=== PATIENT | male | born 1955 | race Caucasian/White ===

== ENCOUNTER 2023-11-12 17:27 | Emergency (ER) | payer MEDICARE, SELFPAY ==
[2023-11-12 17:28] VITALS: BP 157/90; PULSE 84; RESP 17; TEMP 36.4; O2SAT 96; BMI 26.0
--- NOTE | 2023-11-12 18:02 | EX.ED.DYSGE1 ---
HPI History of Present Illness Chief Complaint: Anxiety Informant: patient Onset/Context/Timing Onset: Weeks (2) Context: Gradual Onset Timing: Continuous Quality: Anxiety Location: Generalized Worsened by: Stress Relieved by: Taking his mind off of his situation Narrative Narrative: Patient presents with increasing anxiety that has been getting worse over the past 2 weeks. Patient states it is gradually getting worse. Patient states that he has been under a lot of stress with work. Patient also states that his brother recently and the was today. Patient states this made his anxiety worse. Patient states that if he tries to take his mind off of things his anxiety does get somewhat better. Patient denies any suicidal homicidal ideations. Patient states he has been on antianxiety medicines in the past but has not used them in the past couple years. [facility] Medical History High blood pressure High cholesterol Anxiety Home Medications ?Medication ?Instructions ?Recorded ?Last Taken ?Type hydroxyzine pamoate 25 mg capsule 50 mg (2 x 25 mg) PO TID PRN PRN 11/12/23 Unknown Rx Anxiety #30 CAPSULES Allergy/AdvReac Type Severity Reaction Status Date / Time bee venom protein (honey bee) Allergy Severe Anaphylaxis Verified 11/12/23 17:28 Surgical History no surgical history no surgical history Social History Smoking Status: Never smoker ROS ROS ED Constitutional Constitutional ED: Denies chills or fever(s) Eyes Eyes: Denies blurry vision or change in vision ENT ENT ED: Denies rhinorrhea or sore throat Cardiovascular Cardiovascular: Denies chest pain or palpitations Respiratory/Chest Respiratory/Chest: Denies cough or dyspnea Gastrointestinal Gastrointestinal: Denies nausea or vomiting Genitourinary Genitourinary ED: Denies dysuria or hematuria Musculoskeletal Musculoskeletal: Denies back pain or neck pain Integumentary Denies abscess or rash Neurologic Neurologic: Denies headache(s) or weakness Psychiatric Psychiatric: Reports anxiety; Denies suicidal ideation or suicidal thoughts Allergic/Immunologic Allergic/Immunologic ED: Denies mouth swelling or urticaria EXAM Physical Exam Const Vital Signs: 11/12/23 17:28 Temperature 97.6 F L Temperature Source Temporal Pulse Rate 84 Respiratory Rate 17 Blood Pressure 157/90 H Blood Pressure Mean 112 Pulse Ox 96 Oxygen Delivery Method Room Air Positive well nourished and well developed General Appearance ED: well developed and NAD HEENT Reports moist mucous membranes Neck supple and no JVD Resp normal respiratory effort and clear to auscultation bilaterally Cardio regular rate and regular rhythm GI non-tender and non-distended Palpation: soft Extremity normal to inspection General Extremety ED: Negative for edema or tenderness General Extremity: Negative for edema Neuro oriented x3, CN's II-XII intact bilaterally and no sensory deficits noted Sensorium / Orientation: alert Motor Exam: strength 5/5 throughout Psych Mood & Affect: anxious MDM MDM MDM Narrative Medical decision making narrative: Patient was given a dose of Vistaril here. Patient was given a prescription for Vistaril. Patient was instructed to follow-up with his primary care physician in 5 to 7 days for further evaluation. Patient and family understood and were agreeable with the plan. All questions were answered. Discharge Plan Triage Chief Complaint: Anxiety ED Provider: Xavier Real Dx/Rx/DC Orders Clinical Impression: Anxiety, Hypercholesterolemia, Elevated blood pressure reading Instructions: ED Anxiety Reaction Prescriptions: New hydroxyzine pamoate 25 mg capsule 50 mg PO TID PRN PRN (Reason: Anxiety) Qty: 30 0RF Rx Instructions: Take 1 to 2 tablets every 8 hours as needed for anxiety Primary Care Provider: Kelechi Tompkins Referrals: Kelechi Tompkins MD [Primary Care Provider] - 5-7 Days Print Language: Yoruba Disposition Disposition: Home, Self Care
[2023-11-12] MEDS: hydrOXYzine PAM 25 MG Capsule PO (18:12)
--- NOTE | 2023-11-12 18:35 | CM.ED ---
Social Work Date of referral: 11/12/23 Reason for referral: Anxiety Referred by: Social Work identification vault worker met briefly with patient and patient's son Martir prior to patient being discharged. Patient consented to social work visit and also consented to Martir being in the room during the visit. Patient stated he's struggled with anxiety for over 20 year and used to be medicated for it and saw a psychiatrist 2 or 3 times. Patient unable to recall the name of the psychiatrist. Patient stated he's been experiencing recent increased stressors with work and his partners selling the business and now, patient's youngest brother recently and the was today. Patient reported he used to struggle with panic attacks and used to think he was having a heart attack and was going to . Patient reported that being in the crowd today at the triggered flashbacks to when patient used to have panic attacks years ago and increased his anxiety and fear that he's going to start having them again. Patient reported that today is the first real day that he cried over his brother's and thinks that his grief was just delayed. Patient talked about various relaxation strategies he utilizes to help calm and relax himself which involved focusing/being aware of his body and what's happening to his body. Patient reported that has helped. Patient also reported he tries to find something to focus his attention on to take his mind off of something that's causing him high levels of stress. vault worker provided emotional support and reassurance and reviewed stages of grief as well as dialectical behavior therapy techniques such as Mindfulness and the Self-Soothing Skill which protective services social worker trained patient on. Patient declined counseling resources or resources for grief. Patient reported he has a strong family support system and is going to talk to his doctor about getting put back on medication. No other concerns identified and no other assistance requested. Rocio Fisher, MEDICAL PHYSICS RESEARCHER, FITTER'S ASSISTANT
[2023-11-12 18:36] VITALS: BP 159/87; PULSE 81; RESP 16; TEMP 36.1; O2SAT 97
== END 2023-11-12 18:59 | disposition home or self-care (01) ==
LOC: ED 18:54
PROVIDERS: Emergency Provider Emergency Medicine; PCP Internal Medicine; Visit Provider Emergency Medicine
DX: F41.9 Anxiety disorder, unspecified (principal); E78.00 Pure hypercholesterolemia, unspecified; R03.0 Elevated blood-pressure reading, without diagnosis of hypertension
CPT/HCPCS: 99282